=== PATIENT | male | born 1965 | race Caucasian/White ===

== ENCOUNTER 2020-03-02 11:59 | Emergency (ER) | payer SELFPAY ==
[~2020-03-02] VITALS: Ht 172.7 cm; Wt 82.0 kg
[~2020-03-02 11:59] MED LIST: COR3
[2020-03-02 12:03] VITALS: BP 140/93
[2020-03-02] MEDS ORDERED: BACITRACIN ZINC OINT UDPKT TOP ONE (12:30)
[2020-03-02] MEDS ORDERED: ACETAMINOPHEN 325MG TABLET PO ONE (12:30)
[2020-03-02] MEDS ORDERED: LIDOCAINE 1%/EPI 1:100,000 10 ML VIAL IJ ONE (12:30)
[2020-03-02] MEDS ORDERED: LIDOCAINE HCL/EPINEPHRINE 1%-EPI 1:100,000 20 ML VIAL INFIL ONE (12:45)
== END 2020-03-02 14:37 | disposition left against medical advice (07) ==
LOC: ER 12:20
DX: S01.01XA Laceration without foreign body of scalp, initial encounter (principal); S01.511A Laceration without foreign body of lip, initial encounter; S02.2XXA Fracture of nasal bones, initial encounter for closed fracture; H57.89 Other specified disorders of eye and adnexa; Y04.2XXA Assault by strike against or bumped into by another person, initial encounter; Y93.89 Activity, other specified; Y92.89 Other specified places as the place of occurrence of the external cause
CPT/HCPCS: 70486; 99285; J3490

== ENCOUNTER 2024-01-19 19:50 | Inpatient (IN) | payer OTHER, MEDICAID ==
[~2024-01-19] VITALS: Ht 172.7 cm; Wt 87.5 kg
[2024-01-19 20:02] VITALS: O2SAT 98
[2024-01-19] MEDS ORDERED: SODIUM CHLORIDE 0.9% 1000ML BAG (SEPSIS BOLUS) IV ONE (22:30)
[2024-01-19 23:12] LABS: INR 1.3; PROTHROMBIN TIME 14.7 sec (9.6-11.0)
[2024-01-19 23:35] LABS: ALANINE AMINOTRANSFERASE 22 IU/L (10-49); ASPARTATE AMINOTRANSFERASE 92 IU/L (<34); BILIRUBIN TOTAL 2.8 mg/dL (0.1-1.0); CALCIUM 7.3 mg/dL (8.7-10.4); CARBON DIOXIDE 26 mEq/L (21-32); CHLORIDE 110 mEq/L (98-107); CREATINE KINASE 124 IU/L (46-171); CREATININE 0.8 mg/dL (0.6-1.3); ETHANOL BLOOD 336 mg/dL (<10); GLUCOSE 115 mg/dL (70-105); POTASSIUM 4.1 mEq/L (3.5-5.1); PROTEIN TOTAL 8.4 g/dL (6.0-8.3); SODIUM 141 mEq/L (136-145); UREA NITROGEN BLOOD 6 mg/dL (9-23)
[2024-01-19 23:43] LABS: BASOPHILS % 1.3 % (0.0-2.0); HEMATOCRIT. 27.6 % (42.0-52.0); HEMOGLOBIN. 9.2 g/dL (14.0-18.0); LYMPHOCYTES % 17.8 % (20.0-50.0); MEAN CORPUSCULAR HEMOGLOBIN 32.1 pg (28.0-32.0); MEAN CORPUSCULAR HGB CONC 33.4 g/dL (31.0-37.0); MEAN PLATELET VOLUME 9.5 fl (7.4-10.4); MONOCYTES % 9.6 % (2.0-8.0); NEUTROPHILS % 67.3 % (40.0-76.0); RED BLOOD CELL COUNT 2.87 mill/uL (4.7-6.1); RED CELL DISTRIBUTION WIDTH 18.4 % (11.6-14.6); WHITE BLOOD COUNT 6.3 x1000/uL (4.5-11.0)
[2024-01-19 23:58] LABS: DIFFERENTIAL COMMENT 1
[2024-01-20] MEDS: SODIUM CHLORIDE 0.9% 1,000 ML IV ONE (01:22)
[2024-01-20 01:52] LABS: TROPONIN I HIGH SENSITIVITY 9 ng/L (3.0-53)
[2024-01-20] MEDS: FOLIC ACID 1 MG, THIAMINE HCL 100 MG, MVI, ADULT NO.1 10 ML in DEXTROSE 5% WATER 1,000 ML IV ONE (03:42)
[2024-01-20] MEDS: CEFTRIAXONE 2GM/50ML 50 ML IV NR (03:42)
[2024-01-20] MEDS: VANCOMYCIN 1.5GM/250ML 250 ML IV NR (04:40)
[2024-01-20 12:55] LABS: PLATELET 45 x1000/uL (130-400)
[2024-01-20] MEDS ORDERED: LORAZEPAM 4MG/ML INJ IV PRN (14:15)
[2024-01-20] MEDS ORDERED: ONDANSETRON HCL 4MG/2ML INJ IV PRN (14:15)
[2024-01-20 15:16] VITALS: BP 163/92; PULSE 116; RESP 20; TEMP 97.5
[2024-01-20 16:00] VITALS: BP 163/91; PULSE 110; RESP 19; TEMP 98.1
[2024-01-20] MEDS: VANCOMYCIN 1.25GM PMX (XELLIA) 250 ML IV SCH (16:00)
[2024-01-20 20:00] VITALS: BP 152/86; PULSE 105; RESP 19; TEMP 98
[2024-01-20 22:54] LABS: CLARITY URINE CLEAR (CLEAR); COLOR URINE DARK YELLOW (YELLOW); GLUCOSE URINE NEGATIVE (NEGATIVE); KETONES URINE NEGATIVE (NEGATIVE); LEUKOCYTE ESTERASE URINE TRACE (NEGATIVE); NITRITE URINE NEGATIVE (NEGATIVE); OCCULT BLOOD URINE 1+ (NEGATIVE); PH URINE 8.5 (4.5-8.0); PROTEIN URINE TRACE (NEGATIVE); SPECIFIC GRAVITY URINE 1.016 (1.005-1.030)
[2024-01-20 23:08] LABS: BACTERIA URINE TRACE; SQUAMOUS EPITHELIAL CELL URINE RARE /lpf (RARE/1+)
[2024-01-20 23:09] LABS: WBC URINE 0-2 /hpf (0-2)
[2024-01-20 23:16] LABS: *AMPHETAMINES SCREEN URINE NEGATIVE (NEGATIVE); *BARBITURATES SCREEN URINE NEGATIVE (NEGATIVE); *BENZODIAZEPINES SCREEN URINE NEGATIVE (NEGATIVE); *COCAINE SCREEN URINE NEGATIVE (NEGATIVE); CANNABINOID URINE SCREEN NEGATIVE (NEGATIVE); ECSTASY MDMA SCREEN URINE NEGATIVE (NEGATIVE); METHADONE URINE SCREEN Neg (NEGATIVE); OPIATES URINE SCREEN NEGATIVE (NEGATIVE); PHENCYCLIDINE URINE SCREEN NEGATIVE (NEGATIVE)
[2024-01-21] VITALS: BP 150/77; PULSE 102; RESP 20; TEMP 97.7
[2024-01-21 04:00] VITALS: BP 158/84; PULSE 92; RESP 21; TEMP 97.9
[2024-01-21] MEDS ORDERED: LORAZEPAM 2MG/ML INJ IV PRN (04:14)
[2024-01-21] MEDS: ACETAMINOPHEN 325MG TABLET PO PRN (04:35)
[2024-01-21] MEDS: CEFTRIAXONE 1GM/50ML 50 ML IV SCH (06:49)
[2024-01-21 08:00] VITALS: BP 129/80; PULSE 110; RESP 19; TEMP 97.3
[2024-01-21 12:00] VITALS: BP 145/79; PULSE 111; RESP 19; TEMP 97.6
[2024-01-21] MEDS: SPIRONOLACTONE 50MG TABLET PO SCH (12:00)
[2024-01-21] MEDS: FUROSEMIDE 40MG/4ML VIAL IVP SCH (12:00)
[2024-01-21 12:08] LABS: CALCIUM 7.1 mg/dL (8.7-10.4); CARBON DIOXIDE 23 mEq/L (21-32); CHLORIDE 106 mEq/L (98-107); CREATININE 0.6 mg/dL (0.6-1.3); GLUCOSE 124 mg/dL (70-105); POTASSIUM 3.5 mEq/L (3.5-5.1); SODIUM 135 mEq/L (136-145); UREA NITROGEN BLOOD 7 mg/dL (9-23)
[2024-01-21 16:00] VITALS: BP 140/91; PULSE 120; RESP 18; TEMP 97.6
[2024-01-21 20:00] VITALS: BP 152/87; PULSE 62; RESP 62; TEMP 99.4
[2024-01-22] VITALS: BP 160/82; PULSE 107; RESP 17; TEMP 98.3
[2024-01-22 04:00] VITALS: BP 147/70; PULSE 86; RESP 17; TEMP 97.2
[2024-01-22] MEDS: HALOPERIDOL LACTATE 5MG/ML VIAL IM PRN (05:13)
[2024-01-22 08:00] VITALS: BP 157/73; PULSE 109; RESP 20; TEMP 101
[2024-01-22 12:00] VITALS: BP 128/80; PULSE 106; RESP 20; TEMP 99.4
[2024-01-22] MEDS ORDERED: FUROSEMIDE 40MG/4ML VIAL IVP NR (13:15)
[2024-01-22 16:00] VITALS: BP 158/80; PULSE 103; RESP 20; TEMP 99.7
== END 2024-01-22 17:15 | disposition left against medical advice (07) | DRG 603 ==
LOC: ER 19:50 → 6EST 01-20 02:58
PROVIDERS: ADMIT Internal Medicine; ATTEND Internal Medicine
DX: L03.116 Cellulitis of left lower limb (principal); E44.0 Moderate protein-calorie malnutrition; L03.115 Cellulitis of right lower limb; D64.9 Anemia, unspecified; Z68.29 Body mass index [BMI] 29.0-29.9, adult; D69.6 Thrombocytopenia, unspecified; E87.70 Fluid overload, unspecified; F10.129 Alcohol abuse with intoxication, unspecified; K74.60 Unspecified cirrhosis of liver; Y90.8 Blood alcohol level of 240 mg/100 ml or more
CPT/HCPCS: 36415; 71045; 73590; 73630; 76700; 80048; 80053; 80202; 80305; 80320; 81003; 82550; 83605; 83880; 84145; 84484; 85025; 93005; 93970; 97110; 97162; 97166; 97530; 99285; A6261; C1893; J0696; J1630; J1940; J2060; J3370; J3411; J3490; J7030; J7070; G0480